=== PATIENT | female | born 1980 | race Caucasian/White ===

== ENCOUNTER 2018-07-08 10:30 | Day surgery (SDC) | payer OTHER ==
[2018-07-08] MEDS ORDERED: METOCLOPRAMIDE 10 MG INJ (13:20)
[2018-07-08] MEDS ORDERED: PROPOFOL 20 ML ×2 (13:20→13:34)
[2018-07-08] MEDS ORDERED: FENTAnyl 50 MCG/ML VIAL (13:25)
[2018-07-08] MEDS ORDERED: CEFAZOLIN 1 GM INJ (13:27)
[2018-07-08] MEDS ORDERED: ONDANSETRON 4 MG INJ (13:27)
[2018-07-08] MEDS ORDERED: DIPHENHYDRAMINE 50 MG INJ IV (13:30)
[2018-07-08] MEDS ORDERED: FERRIC SUBSULFATE 8 GM VIAL TOP (13:30)
[2018-07-08] MEDS ORDERED: ONDANSETRON 4 MG INJ IV (13:30)
[2018-07-08] MEDS ORDERED: MEPERIDINE 25 MG INJ IV (13:30)
[2018-07-08] MEDS ORDERED: HYDROmorphONE 1 MG/5 ML IV SYRINGE IV ×3 (13:30)
[2018-07-08] MEDS ORDERED: OXYCODONE/ACETAMINOPHEN (5/325) TAB PO ×2 (13:30)
[2018-07-08] MEDS ORDERED: KETOROLAC 30 MG INJ (14:07)
== END 2018-07-08 15:40 | disposition home or self-care (01) ==
LOC: SDS 10:30
DX: N72 Inflammatory disease of cervix uteri (principal)
CPT/HCPCS: 57520; 88305